=== PATIENT | male | born 1975 | race Caucasian/White ===

== ENCOUNTER 2017-12-10 17:49 | Emergency (ER) | payer OTHER ==
[~2017-12-10] VITALS: Ht 182.9 cm; Wt 106.6 kg
[~2017-12-10 17:49] MED LIST: DOXYCYCLINE 10100 M1 PO
[2017-12-10] MEDS ORDERED: BACTRIM DS TAB1 EACH PO (18:19)
[2017-12-10 18:26] VITALS: BP 140/85
== END 2017-12-10 18:28 | disposition home or self-care (01) ==
LOC: M.ERS 17:49
DX: L02.415 Cutaneous abscess of right lower limb (principal)